=== PATIENT | female | born 1985 | race Caucasian/White ===

== ENCOUNTER → 2018-10-15 | Outpatient (CLI) | payer BC ==
[~2018-10-15] MED LIST: ACE3 PO; CLI150 PO; FEXO180T74 PO; IBU600 PO; PER PO
== END ==
LOC: LAB 06:38
PROVIDERS: ATTEND Internal Medicine Endocrinology, Diabetes & Metabolism
DX: R53.82 Chronic fatigue, unspecified (principal)
CPT/HCPCS: 36415; 82533